=== PATIENT | male | born 1975 ===

== ENCOUNTER 2018-06-02 01:58 | Emergency (ER) | payer OTHER ==
[~2018-06-02] VITALS: Ht 177.8 cm; Wt 102.1 kg
[~2018-06-02 01:58] MED LIST: CONZIP100 MG; LEVAQUIN750 MG PO; MORPHINE SULFAT30 M1; NEURONTIN600 MG; VASOTEC10 MG
[2018-06-02] MEDS ORDERED: PERCOCET 5-3251 EACH (02:06)
[2018-06-02] MEDS ORDERED: XANAX2 MG (02:07)
[2018-06-02] MEDS ORDERED: PEPCID40 MG PO (07:56)
[2018-06-02] MEDS ORDERED: LEVSIN/SL0.125 MG SL (07:56)
== END 2018-06-02 08:13 ==
LOC: ER 01:58
DX: K80.80 Other cholelithiasis without obstruction (principal)